=== PATIENT | female | born 1980 | race Caucasian/White ===

== ENCOUNTER 2018-09-24 15:55 | Emergency (ER) | payer OTHER ==
[~2018-09-24] VITALS: Ht 175.3 cm; Wt 127.0 kg
[2018-09-24] MEDS ORDERED: MACROBID 100 M100 MG PO (17:26)
[2018-09-24] MEDS ORDERED: DIFLUCAN150 MG PO (17:26)
[2018-09-24 18:15] VITALS: BP 117/72
== END 2018-09-24 17:50 | disposition home or self-care (01) ==
LOC: FSED 15:55
DX: R30.0 Dysuria (principal); R10.2 Pelvic and perineal pain; N30.00 Acute cystitis without hematuria; B37.3 Candidiasis of vulva and vagina
CPT/HCPCS: 81003; 99282

== ENCOUNTER 2018-09-25 21:07 | Observation (INO) | payer OTHER ==
[~2018-09-25] VITALS: Ht 175.3 cm; Wt 108.9 kg
[~2018-09-25 21:07] MED LIST: DIFLUCAN150 MG PO; MACROBID 100 M100 MG PO
[2018-09-25] MEDS ORDERED: SODIUM CHLORIDE 0.9% 1000ML 1,000 ML IV STA (21:34)
[2018-09-25] MEDS ORDERED: FAMOTIDINE 20 MG/2 ML VIAL IV ONE (21:45)
[2018-09-25] MEDS ORDERED: KETOROLAC TROMETHAMINE 30 MG/ML VIAL IV ONE (21:45)
[2018-09-25] MEDS ORDERED: ONDANSETRON HCL INJ 2MG/ML 2ML 2 MG/ML VIAL IV ONE (21:45)
[2018-09-25] MEDS: SODIUM CHLORIDE 0.9% 1000ML 1,000 ML IV SCH (21:50)
[2018-09-25] MEDS ORDERED: CEFTRIAXONE SOD 1 GM VIAL IV ONE (22:00)
[2018-09-25] MEDS ORDERED: ONDANSETRON HCL INJ 2MG/ML 2ML 2 MG/ML VIAL IV PRN (22:00)
[2018-09-25] MEDS ORDERED: ACETAMINOPHEN 325 MG TAB PO PRN (22:00)
[2018-09-25] MEDS ORDERED: DIPHENHYDRAMINE HCL INJ 50 MG/ML VIAL IV PRN (22:00)
[2018-09-25] MEDS ORDERED: ZOLPIDEM TARTRATE 5 MG TAB PO PRN (22:00)
[2018-09-25] MEDS ORDERED: HYDRALAZINE HCL 20 MG/ML VIAL IV PRN (22:00)
[2018-09-25] MEDS ORDERED: ALBUTEROL/IPRATROPIUM 3 ML NEB NEB PRN (22:15)
--- NOTE | 2018-09-25 23:15 | NUR ---
Received from free standing E.R. via stretcher. Patient is alert and oriented. Assisted to transfer to bed. Patient ambulates without assistance. IV to left ac with 20Guage needle intact. Call light within reached and instructed to use when needed.
[2018-09-25] MEDS: HYDROCODONE/APAP 7.5MG-325MG 1 EA TAB PO PRN (23:56)
[2018-09-26] VITALS (10 sets, daily range): BP systolic 105–132; BP diastolic 52–72
[2018-09-26] MEDS ORDERED: VENTOLIN HFA18 GM (00:25)
[2018-09-26 00:34] LABS: HEMATOCRIT 36.1 % (34.2-44.1); HEMOGLOBIN 11.7 g/dL (12.0-16.0)
[2018-09-26 05:40] LABS: HEMATOCRIT 34.3 % (34.2-44.1); HEMOGLOBIN 10.9 g/dL (12.0-16.0)
[2018-09-26] MEDS: SODIUM CHLORIDE 0.9% 1000ML 1,000 ML IV SCH ×3 (05:50→21:50)
--- NOTE | 2018-09-26 07:33 | NUR ---
RECEIVED PATIENT AWAKE RESTING IN BED NO SIGNS OF DISTRESS. BED LOW, WHEELS LOCKED, SIDE RAILS X2. CALL LIGHT IN REACH WILL CONTINUE TO MONITOR PATIENT.
[2018-09-26] MEDS: PANTOPRAZOLE 40 MG 10ML VIAL IV SCH (08:55)
[2018-09-26] MEDS: FLUCONAZOLE 100 MG TAB PO SCH (10:54)
[2018-09-26] MEDS: LEVOFLOXACIN 500 MG TAB PO SCH (10:54)
[2018-09-26] MEDS: HYDROCODONE/APAP 7.5MG-325MG 1 EA TAB PO PRN ×2 (11:00→22:11)
--- NOTE | 2018-09-26 11:00 | NUR ---
PATIENT HAD BOWEL MOVEMENT. BOWEL MOVEMENT SOFT AND BROWN NO PRESENCE OF BLOODY STOOL.
--- NOTE | 2018-09-26 12:02 | History and Physical ---
CHIEF COMPLAINT: Bloody diarrhea. HISTORY OF PRESENT ILLNESS: The patient is a 38-year-old woman. She has a history of endometriosis, who eventually required hysterectomy. About 3 days ago, she developed lower abdominal pain with some diarrhea. Yesterday, she developed rectal bleeding and went to the emergency department. She was started on IV fluids and subsequently admitted for observation. PAST SURGICAL HISTORY: Status post hysterectomy. PAST MEDICAL HISTORY: 1. Endometriosis. 2. Mild intermittent asthma. 3. Proteinuria. SOCIAL HISTORY: The patient is not an active smoker. She is not an active drinker. She has not travelled recently. She has not eaten anything unusual recently. ALLERGIES: NO KNOWN DRUG ALLERGIES. REVIEW OF SYSTEMS: No fever. No headache. No neck pain. No chest pain. No dyspnea. Some abdominal cramping. Some bloody diarrhea. No vomiting. No leg edema. No focal neurological complaints. PHYSICAL EXAMINATION: VITAL SIGNS: The patient is afebrile. The blood pressure is 105/52 and pulse is 71, respiratory rate is 18, and saturation is 97%. HEENT: Shows no facial swelling or erythema. The nasal mucosa is normal. The oropharynx is normal. LYMPHATIC: Shows no submandibular, cervical, or supraclavicular adenopathy. CARDIAC: Reveals regular rate and rhythm with normal S1 and S2. There are no murmurs or rubs. LUNGS: Auscultation of lungs reveals clear breath sounds bilaterally. There is no wheezing. ABDOMEN: Soft and nontender. There is no rebound or guarding. EXTREMITIES: There is no leg edema or calf tenderness. There is no cyanosis or clubbing. SKIN: Shows no rashes. LABORATORY DATA: White blood cell count is 10.4, hemoglobin is 13, and the platelet count is 216. The BUN to creatinine ratio is normal. The other electrolytes are within normal limits. Urinalysis normal. IMPRESSION: 1. Gastroenteritis. 2. Infectious diarrhea. 3. Rectal bleeding. 4. History of endometriosis. PLAN: 1. The patient will receive IV fluids. 2. P.o. Levaquin for infectious diarrhea. 3. Monitor blood counts. 4. GI consultation. Wyatt Jordan MD LM/MIREYA /[id number]
[2018-09-26 12:06] LABS: HEMATOCRIT 35.8 % (34.2-44.1); HEMOGLOBIN 11.3 g/dL (12.0-16.0)
[2018-09-26] MEDS: ALBUTEROL SULFATE HFA 8GM INHALATION AEROSOL INH PRN ×2 (15:41→20:40)
[2018-09-26 18:04] LABS: HEMATOCRIT 35.3 % (34.2-44.1); HEMOGLOBIN 11.1 g/dL (12.0-16.0)
[2018-09-27 00:09] LABS: HEMOGLOBIN 10.8 g/dL (12.0-16.0)
[2018-09-27] MEDS: ALBUTEROL SULFATE HFA 8GM INHALATION AEROSOL INH PRN ×2 (03:55→12:37)
[2018-09-27 05:45] LABS: HEMATOCRIT 34.2 % (34.2-44.1); HEMOGLOBIN 10.6 g/dL (12.0-16.0)
[2018-09-27] MEDS: SODIUM CHLORIDE 0.9% 1000ML 1,000 ML IV SCH ×3 (05:50→20:36)
--- NOTE | 2018-09-27 08:30 | NUR ---
MD Sindhu REED INTO SEE PT, DISCUSSED POC
[2018-09-27 08:35] VITALS: BP 110/63
[2018-09-27] MEDS ORDERED: FLUCONAZOLE 150 MG PO SCH (09:00)
[2018-09-27] MEDS: FLUCONAZOLE 100 MG TAB PO SCH (09:00)
[2018-09-27] MEDS: PANTOPRAZOLE 40 MG 10ML VIAL IV SCH (09:00)
[2018-09-27 10:02] VITALS: BP 110/63
[2018-09-27] MEDS: LEVOFLOXACIN 500 MG TAB PO SCH (10:30)
[2018-09-27] MEDS: HYDROCODONE/APAP 7.5MG-325MG 1 EA TAB PO PRN ×2 (11:00→18:11)
--- NOTE | 2018-09-27 11:00 | NUR ---
MEDICATED PER MD ORDER FOR 10/20 ABD PAIN, EDUCATED TO NOT GET OOB WITHOUT CALLING FOR ASSISTANCE, PT VERBALIZED UNDERSTANDING, CALL LIGHT WITHIN REACH
--- NOTE | 2018-09-27 13:00 | NUR ---
TELEPHONED MD BELTRAN TO MAKE AWARE OF CONSULT, SPOKE WITH SANGITA, AWAITING CALL BACK
[2018-09-27 13:48] VITALS: BP 104/56
--- NOTE | 2018-09-27 15:56 | NUR ---
SPOKE WITH MD BELTRAN'S OFFICE PER PT REQUEST TO CLARIFY IF MD IS COMING TO SEE HER, OFFICE STATED "HE IS IN CLINIC NOW AND SHOULD COME AFTER TO THE HOSPITAL"
[2018-09-27 17:36] VITALS: BP 119/72
[2018-09-27 18:52] LABS: HEMATOCRIT 34.6 % (34.2-44.1); HEMOGLOBIN 11.2 g/dL (12.0-16.0)
--- NOTE | 2018-09-27 19:10 | NUR ---
Bedside report/walking rounds complete. Pt resting in bed and in no apparent distress. All safety measures ensured and pt call gill near.
[2018-09-27 20:00] VITALS: BP 120/64
--- NOTE | 2018-09-27 20:20 | NUR ---
Dr. Sweeney here rounding on pt. stated she is ok to be d/c home in the am and to follow up with him outpatient.
[2018-09-28] VITALS: BP 110/58
[2018-09-28] MEDS: HYDROCODONE/APAP 7.5MG-325MG 1 EA TAB PO PRN ×2 (00:21→07:44)
--- NOTE | 2018-09-28 02:38 | Consultation ---
DATE OF CONSULTATION: 09/27/2018 GI Consult Note REASON FOR CONSULT: Bloody diarrhea x2 days. HISTORY OF PRESENTING ILLNESS: A 38-year-old very pleasant white female, who has a history of endometriosis in the past, for which she underwent hysterectomy less than couple of years ago. She was in her usual state of health about a week ago. Three days ago, on last Thursday, she developed acute onset of lower abdominal cramping followed by several bouts of loose stool, few of them were just bloody only. The patient does not remember eating anything outside. She does not remember drinking any contaminated food. No travel history. No recent use of any antibiotics. She went to the nearest urgent care center, where she had a blood work done that showed hemoglobin of 11.3, which subsequently dropped down to 10.6 and climbed back again to 11.2. She got admitted for further evaluation and workup. The patient reports no extraintestinal complaints. She has a chronic history of psoriasis. No family history of any inflammatory bowel disease. Normally she has 1 or 2 bowel movement daily. Ever since she is hospitalized for the last 2 days, she has been given clear liquid, which she is tolerating it very well. She has not had any BM for last 2 days. Abdominal cramping has also improved. She has been empirically treated with IV fluids and intravenous levofloxacin without any metronidazole. REVIEW OF SYSTEMS: Twelve-point system reviewed. Symptomatology is limited to GI system only. PAST MEDICAL HISTORY: Endometriosis, asthma, history of proteinuria, psoriasis. PAST SURGICAL HISTORY: Hysterectomy. FAMILY HISTORY: Negative for any GI or CHEMICAL LABORATORY TESTER malignancies. No inflammatory bowel disease. SOCIAL HISTORY: No smoking, alcohol, or any illicit drug use. ALLERGIES: NONE. HOME MEDICATION: Albuterol inhaler. INPATIENT MEDICATION: List reviewed as per JUN. PHYSICAL EXAMINATION: VITAL SIGNS: Temperature 97.8, pulse 71, respirations 20, blood pressure 119/72, oxygen saturation 96% on room air. GENERAL: Not in any acute distress. HEENT: Oral mucosa is moist. Anicteric sclerae. NECK: No neck or axillary adenopathy. CVS: S1 and S2 regular. LUNGS: Bilaterally grossly clear. ABDOMEN: Obese, soft, nondistended, nontender. No palpable mass or hernia. Positive bowel sounds. EXTREMITIES: Warm. No leg edema. Psoriatic scales in both upper extremities on the extensor aspect. LABORATORY DATA: Hemoglobin today 11.2, it was 10.6 yesterday. IMPRESSION: Self-limiting acute gastroenteritis, likely due to hemorrhagic Escherichia coli. PLAN: The infectious colitis has resolved. I do not see any inflammatory component. The patient is no longer having any diarrhea. Advance diet to solid food. I do not recommend continuation of any antibiotic. The patient can be discharged home from GI standpoint. I have given her my business card. I have advised the patient to call my office to schedule appointment to see me within 1 week after discharge. I will reassess her as an outpatient and determine whether the patient will benefit from any colonoscopy. I thank Dr. Jordan for allowing me to participate in the care of this patient. Cody Sweeney MD SA/MIREYA /[id number]
[2018-09-28 04:00] VITALS: BP 138/65
[2018-09-28 05:35] LABS: HEMATOCRIT 34.1 % (34.2-44.1); HEMOGLOBIN 10.9 g/dL (12.0-16.0)
[2018-09-28] MEDS: SODIUM CHLORIDE 0.9% 1000ML 1,000 ML IV SCH (05:44)
[2018-09-28 08:58] VITALS: BP 114/60
[2018-09-28] MEDS: PANTOPRAZOLE 40 MG 10ML VIAL IV SCH (09:30)
[2018-09-28] MEDS: FLUCONAZOLE 100 MG TAB PO SCH (09:30)
[2018-09-28] MEDS: LEVOFLOXACIN 500 MG TAB PO SCH (09:30)
--- NOTE | 2018-09-28 10:25 | NUR ---
Patient verbalized understanding of d/c instructions. IV access discontinued prior to discharge. instructed to follow up with GI as outpatient.
--- NOTE | 2018-09-28 10:45 | Discharge Summary ---
DISCHARGE DIAGNOSES: 1. Infectious diarrhea. 2. Hematochezia. 3. History of endometriosis. CONSULTING PHYSICIAN: Dr. Sweeney of Gastroenterology. DISCHARGE MEDICATIONS: Albuterol HFA inhaler 2 puffs as needed. HISTORY OF PRESENT ILLNESS: The patient is a 38-year-old woman. She has a history of endometriosis. She eventually required a hysterectomy. Three days ago, she developed lower abdominal pain and diarrhea. She had some rectal bleeding on morning prior to coming to the emergency department. HOSPITAL COURSE: The patient was admitted in observation. She received IV fluids. Her blood counts were monitored and they remained stable. She received p.o. antibiotics for infectious diarrhea as well as Diflucan . She responded well and her abdominal cramping and diarrhea resolved. The patient saw a GI in consultation. They did not recommend any colonoscopy or additional procedures. The patient will follow up in 1 to 2 weeks. DISPOSITION: The patient will go home. She will follow up with GI in 1 to 2 weeks. Wyatt Jordan MD [facility]/[place] /[id number]
== END 2018-09-28 10:25 | disposition home or self-care (01) ==
LOC: FSED 21:07 → ERHOLD 22:01 → MED/SURG 23:22
PROVIDERS: ADMIT Internal Medicine Critical Care Medicine; ATTEND Internal Medicine Critical Care Medicine
DX: A09 Infectious gastroenteritis and colitis, unspecified (principal); K92.1 Melena; J45.909 Unspecified asthma, uncomplicated; L40.9 Psoriasis, unspecified; N80.9 Endometriosis, unspecified
CPT/HCPCS: 36415; 85014; 85018; 94664; 99284; G0378; J1885; J2405; J7030

== ENCOUNTER 2019-08-07 01:22 | Emergency (ER) | payer OTHER ==
[~2019-08-07] VITALS: Ht 176.5 cm; Wt 127.0 kg
[~2019-08-07 01:22] MED LIST changes: +VENTOLIN HFA18 GM
--- OUTSIDE RECORDS SUMMARY | 2019-08-07 01:26 | XMS REPORT ---
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 Role Phone THEA CANALES MD PP Payers Payer Name Policy Type Policy Number Effective Date Expiration Date [facility] [id number] 2018 00:00:00 [facility] [id number] 2018 00:00:00 Problems Condition Name Condition Details Condition Category Status Onset Date Resolution Date Last Treatment Date Treating Clinician Comments Gastrointestinal hemorrhage due to nonsteroidal antiinflammatory drug GI bleed due to NSAIDs Problem Active Lower gastrointestinal hemorrhage Lower gastrointestinal bleed Problem Active Allergies, Adverse Reactions, Alerts This patient has no known allergies or adverse reactions. Medications Ordered Medication Name Filled Medication Name Start Date Stop Date Current Medication? Ordering Clinician Indication Dosage Frequency Signature (SIG) Comments Components Fluconazole (Diflucan) 150 Mg Tablet, 150 Mg Oral Fluconazole (Diflucan) 150 Mg Tablet, 150 Mg Oral 2018-09-24 00:00:00 2018-09-27 00:00:00 No Rajeev Mukherjee Md 150 Daily Nitrofurantoin Monohyd/M-Cryst (Macrobid 100 Mg Capsule) 100 Mg Capsule, 100 Mg Oral Nitrofurantoin Monohyd/M-Cryst (Macrobid 100 Mg Capsule) 100 Mg Capsule, 100 Mg Oral 2018-09-24 00:00:00 2018-09-27 00:00:00 No Rajeev Mukherjee Md 100 Twice A Day Albuterol Sulfate (Ventolin Hfa) 18 Gm Hfa.aer.ad Albuterol Sulfate (Ventolin Hfa) 18 Gm Hfa.aer.ad Yes as needed for Shortness Of Breath Encounters Start Date/Time End Date/Time Encounter Type Admission Type Attending [facility] Care Department Encounter ID 2018-09-25 22:01:00 2018-09-28 10:25:00 Discharged Inpatient (obs) [facility] [id number] 2018-09-24 15:55:00 2018-09-24 17:50:00 Departed Emergency Room [facility] [id number] Results Test Description Test Time Test Comments Text Results Atomic Results Result Comments Hemoglobin 2018-09-28 05:46:00 Hemoglobin (test [id number]) 10.9 12.0-16.0 [id number] 05:46:00* Test Item Value Reference Range Comments Hematocrit (test pdhh=[id number]) 34.1 34.2-44.1
[2019-08-07] MEDS ORDERED: CEFDINIR300 MG PO (02:20)
[2019-08-07] MEDS ORDERED: MEDROL4 MG PO (02:21)
[2019-08-07] MEDS ORDERED: ONDANSETRON ODT8 MG PO (02:22)
[2019-08-07] MEDS ORDERED: CEFTRIAXONE SOD 1 GM VIAL ONE (02:25)
[2019-08-07] MEDS ORDERED: DEXAMETHASONE SOD PHOS 10 MG/1 ML VIAL ONE (02:25)
[2019-08-07] MEDS ORDERED: CEFTRIAXONE SOD 1 GM VIAL IM ONE (02:30)
[2019-08-07] MEDS ORDERED: DEXAMETHASONE SOD PHOS 10 MG/1 ML VIAL IM ONE (02:30)
--- NOTE | 2019-08-07 02:33 | NUR ---
PT TOLERATED INJECTIONS WELL
[2019-08-07 02:50] VITALS: BP 144/80
== END 2019-08-07 02:50 | disposition home or self-care (01) ==
LOC: FSED 01:22
DX: R05 Cough (principal); J01.00 Acute maxillary sinusitis, unspecified; J01.10 Acute frontal sinusitis, unspecified; J30.1 Allergic rhinitis due to pollen; J45.30 Mild persistent asthma, uncomplicated
CPT/HCPCS: 81003; 96372; 99282; J0696; J1100

== ENCOUNTER 2020-12-17 16:31 | Emergency (ER) | payer OTHER ==
[~2020-12-17] VITALS: Ht 175.3 cm; Wt 124.5 kg
[~2020-12-17 16:31] MED LIST changes: +CEFDINIR300 MG PO; +MEDROL4 MG PO; +ONDANSETRON ODT8 MG PO
[2020-12-17] MEDS ORDERED: SINGULAIR10 MG PO (17:11)
[2020-12-17] MEDS ORDERED: KETOROLAC TROME10 MG (17:11)
[2020-12-17] MEDS ORDERED: VENTOLIN HFA18 GM INH ×2 (17:11→17:58)
[2020-12-17] MEDS ORDERED: HYDROCODON-ACE1 EAC9 (17:11)
[2020-12-17] MEDS ORDERED: NEURONTIN400 MG PO (17:11)
[2020-12-17] MEDS ORDERED: ACETAMINOPHEN-1 EAC4 PO (17:58)
[2020-12-17] MEDS ORDERED: PREDNISONE20 MG PO (17:58)
== END 2020-12-17 18:08 | disposition home or self-care (01) ==
LOC: FSED 16:59
DX: M54.6 Pain in thoracic spine (principal); J45.909 Unspecified asthma, uncomplicated; E78.00 Pure hypercholesterolemia, unspecified; L40.9 Psoriasis, unspecified
CPT/HCPCS: 71250; 93005; 99283